=== PATIENT | male | born 1975 | race Two or more races ===

== ENCOUNTER 2019-07-24 11:12 | Emergency (ER) | payer MEDICAID ==
[~2019-07-24] VITALS: Ht 165.1 cm; Wt 92.5 kg
[2019-07-24 11:16] VITALS: BP 130/86
== END 2019-07-24 12:10 | disposition home or self-care (01) ==
LOC: ER 11:12
DX: S40.022A Contusion of left upper arm, initial encounter (principal); W11.XXXA Fall on and from ladder, initial encounter; Y93.89 Activity, other specified; Y92.89 Other specified places as the place of occurrence of the external cause; Y99.8 Other external cause status
CPT/HCPCS: 73060-TC